=== PATIENT | male | born 1935 | race Two or more races ===

== ENCOUNTER 2022-06-26 19:27 | Inpatient (IN) | payer MEDICARE ==
[~2022-06-26] VITALS: Ht 172.7 cm; Wt 74.4 kg
[2022-06-26] MEDS: CEFTRIAXONE 1 G in IV D5W 50 ML IV SCH (00:56)
[2022-06-26] MEDS: AZITHROMYCIN 500 MG in IV D5W 250 ML IV SCH (01:48)
--- NOTE | 2022-06-26 19:15 | NUR ---
MS RN OPENING NOTE PATIENT IS SITTING IN BED WITH HER OWN CLOTHES. SHE IS CONFUSED AND TALKED TO HERSELF CONSTANTLY. SHE IS ORIENTED TO HER NAME ONLY. IV ACCESS WAS ON HER LEFT AC, #20 G. HER IV ACCESS IS PATENT AND INTACT, RUNNING NS AT 75 ML/HR. ORIENTED THE PATIENT TO THE SURROUNDINGS. PATIENT IS ON 2 LPM OF OXYGEN VIA NC, HOWEVER, SHE REFUSED TO PUT THE OXYGEN NEAR HER NOSTRILS. EDUCATED THE PATIENT AND NOTIFIED THE PATIENT THAT WE NEED TO COLLECT HER URINE SAMPLE, PT REFUSED. SAFETY MEASURES ARE IN PLACE: BED IN LOWEST AND LOCKED POSITION; SIDE RAILS UP X 3; BED ALARM IS IN SET; CALL CHAVARRIA AND TABLE ARE WITHIN REACH. WILL CONTINUE MONITOR THE PATIENT AND PROVIDE THE CARE PATIENT NEEDS.
[2022-06-26 20:24] LABS: BASOPHILS % (AUTO) 0.3 % (0.0-2.0); EOSINOPHILS % (AUTO) 0.4 % (0.0-6.0); HEMATOCRIT 38 % (39-51); HEMOGLOBIN 12.4 g/dL (13.5-17.5); LYMPHOCYTES # (AUTO) 0.3 K/uL (0.8-4.8); LYMPHOCYTES % (AUTO) 4.3 % (20.0-44.0); MEAN CORPUSCULAR HGB CONC 33 g/dl (31.0-36.0); MEAN CORPUSCULAR VOLUME 90 fL (80-96); MONOCYTES # (AUTO) 0.6 K/uL (0.1-1.30); MONOCYTES % (AUTO) 8.8 % (2.0-12.0); NEUTROPHILS # (AUTO) 6.2 K/uL (1.8-8.9); NEUTROPHILS % (AUTO) 86.2 % (43.0-81.0); PLATELET COUNT (AUTO) 155 K/uL (150-450); WHITE BLOOD COUNT (AUTO) 7.2 K/uL (4.3-11.0)
[2022-06-26 20:50] LABS: SERUM AMMONIA 4 umol/L (11-32)
[2022-06-26 20:57] LABS: ALANINE AMINOTRANSFERASE 10 U/L (12-78); ALBUMIN 3.5 g/dL (3.4-5.0); ALCOHOL, BLOOD < 3 mg/dL (0-0); ALKALINE PHOSPHATASE 65 U/L (46-116); ASPARTATE AMINOTRANSFERASE 17 U/L (15-37); BILIRUBIN,DIRECT 0.2 mg/dL (0.0-0.2); BILIRUBIN,TOTAL 0.5 mg/dL (0.2-1.0); CALCIUM, SERUM 8.9 mg/dL (8.5-10.1); CARBON DIOXIDE 26 mmol/L (21-32); CHLORIDE 105 mmol/L (98-107); CREATININE 1.6 mg/dL (0.6-1.3); GLUCOSE 103 mg/dL (74-106); POTASSIUM 3.4 mmol/L (3.5-5.1); SODIUM SERUM 140 mmol/L (136-145); TOTAL PROTEIN, SERUM 7.1 g/dL (6.4-8.2); UREA NITROGEN, BLOOD 36 mg/dL (7-18)
[2022-06-26 21:01] LABS: THYROID STIMULATING HORMONE 5.755 uIU/mL (0.358-3.74)
--- NOTE | 2022-06-26 21:27 | NUR ---
[facility] CALLED FOR TRANSFER REQUEST. NO BEDS AVAILABLE.
[2022-06-26] MEDS ORDERED: IV NS 0.9% 1,000 ML BAG IV ONE (21:30)
--- NOTE | 2022-06-26 21:45 | NUR ---
XRAY AT BEDSIDE
--- NOTE | 2022-06-26 21:45 | NUR ---
COVID SWAB DONE AND SENT TO LAB
[2022-06-26] MEDS ORDERED: ONDANSETRON HCL/PF 4 MG/2 ML VIAL IVP PRN (22:30)
[2022-06-26] MEDS ORDERED: TEMAZEPAM 15 MG CAPSULE PO PRN (22:30)
[2022-06-26] MEDS ORDERED: ACETAMINOPHEN 325 MG TABLET PO PRN (22:30)
[2022-06-26] MEDS ORDERED: Z GUARD REMEDY 4 OZ OINT TP PRN (22:30)
[2022-06-26] MEDS ORDERED: MORPHINE SULFATE INJ 2 MG/ML DISP.SYRIN IV PRN (22:30)
[2022-06-26] MEDS ORDERED: HYDROCODONE/APAP 5/325MG TABLET PO PRN (22:30)
[2022-06-26] MEDS ORDERED: MAG HYDROX/AL HYDROX/SIMETH 30 ML UDC PO PRN (22:30)
[2022-06-26] MEDS ORDERED: MAGNESIUM HYDROXIDE 30 ML UDC PO PRN (22:30)
[2022-06-26 22:43] LABS: BILIRUBIN,URINE NEGATIVE (NEGATIVE); COLOR,URINE YELLOW (YELLOW); LEUKOCYTE ESTERASE ,URINE NEGATIVE (NEGATIVE); NITRITE, URINE NEGATIVE (NEGATIVE); PH,URINE 5.5 (5.0-8.0); PROTEIN,URINE NEGATIVE (NEGATIVE); UGLUCOSE NEGATIVE (NEGATIVE); UROBILINOGEN,URINE 0.2 EU/dL (0.2)
[2022-06-26 22:51] LABS: RBC,URINE 0-2 /HPF (0-2)
[2022-06-26 22:52] LABS: BACTERIA,URINE Rare /HPF (None Seen); SQUAMOUS EPITHELIAL CELL,UR Moderate /HPF (None Seen)
--- NOTE | 2022-06-26 23:46 | NUR ---
RN MAY NOT READY FOR REPORT
--- NOTE | 2022-06-26 23:59 | NUR ---
REPORT GIVEN TO DELANEY MONSIVAIS
--- NOTE | 2022-06-27 00:30 | NUR ---
MS RN ADMITTING NOTE RECEIVED PATIENT REPORT BEING TRANSPORTED ON THE GURNEY TO THE UNIT. PATIENT IS ALERT AND AO X 2. REPORT WAS GIVEN BY DELANEY DOMÍNGUEZ. PATIENT HAS IV ACCESS AT HIS RIGHT AC, #20G, SL. FLUSHED WITH 10 CC NS, PATENT AND INTACT. PATIENT IS ON RA, NO S/S OF SOB OR DISTRESS. TOLERATED WELL. VITAL SIGNS WERE TAKEN BY THE SALES AMBASSADOR, AND DOCUMENTED IN THE COMPUTER. PLEASE SEE SALES AMBASSADOR NOTES. ORIENTED THE PATIENT WITH THE SURROUNDINGS AND HOW TO USE THE CALL LIGHT. PT VERBALIZED UNDERSTANDING. SAFETY PRECAUTIONS ARE IN PLACE: BED IN LOWEST AND LOCKED POSITION; SIDE RAILS UP X 3; PATIENT IS IN HIGH RISK OF FALL, BED ALARM IS IN PLACED. CALL CHAVARRIA AND TABLE ARE WITHIN REACH. WILL CONTINUE MONITOR THE PATIENT'S CONDITION AND PROVIDE THE CARE PATIENT NEEDS.
[2022-06-27] MEDS ORDERED: CEFTRIAXONE 1 G VIAL ONE (00:56)
--- NOTE | 2022-06-27 01:05 | NUR ---
PATIENT TRANSFERRED TO [facility]
--- NOTE | 2022-06-27 01:33 | NUR ---
MS RN NOTE ROCEPHIN IV MEDICATION GIVEN AT 0056 PER MD ORDER. THE DUPLICATED ONE WHICH IS OVERRIDE, NOT GIVEN. CHARGE NURSE, IMER, NOTIFIED.
[2022-06-27] MEDS ORDERED: AZITHROMYCIN 500 MG VIAL ONE (01:37)
[2022-06-27 05:30] LABS: BASOPHILS % (AUTO) 0.6 % (0.0-2.0); EOSINOPHILS % (AUTO) 0.6 % (0.0-6.0); HEMATOCRIT 36 % (39-51); HEMOGLOBIN 11.8 g/dL (13.5-17.5); LYMPHOCYTES # (AUTO) 0.9 K/uL (0.8-4.8); LYMPHOCYTES % (AUTO) 15.1 % (20.0-44.0); MEAN CORPUSCULAR HGB CONC 33 g/dl (31.0-36.0); MEAN CORPUSCULAR VOLUME 92 fL (80-96); MONOCYTES # (AUTO) 0.9 K/uL (0.1-1.30); MONOCYTES % (AUTO) 15.6 % (2.0-12.0); NEUTROPHILS # (AUTO) 4.1 K/uL (1.8-8.9); NEUTROPHILS % (AUTO) 68.1 % (43.0-81.0); PLATELET COUNT (AUTO) 164 K/uL (150-450); RED BLOOD CELL COUNT(AUTO) 3.95 MIL/uL (4.5-6.0); WHITE BLOOD COUNT (AUTO) 6.1 K/uL (4.3-11.0)
[2022-06-27 05:46] LABS: CALCIUM, SERUM 8.4 mg/dL (8.5-10.1); CREATININE 1.3 mg/dL (0.6-1.3); MAGNESIUM 1.8 mg/dL (1.8-2.4); PHOSPHORUS 2.4 mg/dL (2.5-4.9); POTASSIUM 3.6 mmol/L (3.5-5.1)
--- NOTE | 2022-06-27 05:55 | NUR ---
MS RN NOTE PATIENT IS VERY CONFUSED AND PULLED HIS IV ACCESS OUT. ASSESSED THE PATIENT AND APPLIED BANDAGE ON THE IV SITE. TRIED TO REINSERTED THE IV, PATIENT SCREAMED AND REFUSED. CHARGE NURSE, IMER, NOTIFIED.
--- NOTE | 2022-06-27 07:40 | NUR ---
MS RN CLOSING NOTE PATIENT IS IN BED SLEEPING. EASILY BEING AROUSED. HE IS ON RA, NO S/S SOB OR DISTRESS. PATIENT IS STILL CONFUSED AND TRYING TO GET OFF THE BED. CHANGE SHIFT REPORT GIVEN TO THE DAY SHIFT NURSE, AND ENDORSED THE DAY SHIFT NURSE TO FOLLOW UP WITH THE REQUESTING PATIENT'S HOME MEDICATION WITH PATIENT'S FAMILY MEMBERS.
--- NOTE | 2022-06-27 07:44 | NUR ---
RECEIVED PATIENT AWAKE IN BED, A/O X2. ON RA, TOLERATING WELL. NO SIGNS OF RESPIRATORY DISTRESS NOTED. NO IV ACCESS NOTED PATIENT KEPT ON PULLING OUT IV LINE ENDORSED BY OUTGOING NURSE. NO COMPLAIN OF PAIN OR DISCOMFORT AT THIS TIME. KEPT COMFORTABLE. SAFETY MEASURES MAINTAINED WITH BED ON LOWEST, LOCKED POSITION, CALL LIGHT WITHIN REACH AT ALL TIMES. WILL MONITOR.
[2022-06-27 08:00] VITALS: BP 148/74
[2022-06-27] MEDS: PANTOPRAZOLE 40 MG TABLET.DR PO SCH (08:14)
[2022-06-27] MEDS ORDERED: RIVA1PAT11 TP (10:03)
[2022-06-27] MEDS ORDERED: DOCU250C14 PO (10:03)
[2022-06-27] MEDS ORDERED: ISRA2.5C PO (10:03)
[2022-06-27] MEDS ORDERED: ARMO250T6 PO (10:03)
[2022-06-27] MEDS ORDERED: MYRBETRIQ PO (10:03)
[2022-06-27] MEDS ORDERED: CARB1CAP3 PO (10:03)
[2022-06-27] MEDS ORDERED: DONE5TAB34 PO (10:03)
[2022-06-27] MEDS ORDERED: CHOL100043 PO (10:03)
[2022-06-27] MEDS ORDERED: ATOR10TA PO (10:03)
[2022-06-27] MEDS ORDERED: ASPI-1420 PO (10:03)
[2022-06-27] MEDS ORDERED: LOSA100T31 PO (10:03)
[2022-06-27] MEDS ORDERED: NEUTRA PHOS 1 POWD.PACKET PO ONE (12:00)
[2022-06-27] MEDS: IV NS 0.9% 1,000 ML IV PRN (13:44)
[2022-06-27 16:00] VITALS: BP 158/82
--- NOTE | 2022-06-27 18:18 | NUR ---
RN CLOSING NOTE PATIENT AWAKE IN BED, A/O X2. ON RA, TOLERATING WELL. NO SIGNS OF RESPIRATORY DISTRESS NOTED. WITH ONGOING IV AT 75ML/HR KEPT COMFORTABLE. ALL DUE MEDS GIVEN.SAFETY MEASURES MAINTAINED WITH BED ON LOWEST, LOCKED POSITION, CALL LIGHT WITHIN REACH AT ALL TIMES. ENDORSED TO INCOMING NOD.
--- NOTE | 2022-06-27 19:25 | NUR ---
MS RN OPENING NOTE RECEIVED PATIENT IN BED. PATIENT PULLED OUT IS IV ACCESS AT HIS RIGHT FA . APPLIED BANDAGE, AND CLEANED THE SITE. PATIENT IS ON RA, NO S/S OF SOB OR DISTRESS. TOLERATED WELL. PATIENT C/O OF HAVING MILD HEADACHE. SAFETY PRECAUTIONS ARE IN PLACE: BED IN LOWEST AND LOCKED POSITION; SIDE RAILS UP X 3; PATIENT IS IN HIGH RISK OF FALL, BED ALARM IS IN PLACED. CALL CHAVARRIA AND TABLE ARE WITHIN REACH. WILL CONTINUE MONITOR THE PATIENT'S CONDITION AND PROVIDE THE CARE PATIENT NEEDS.
[2022-06-27 20:00] VITALS: BP 129/57
[2022-06-27] MEDS: CEFTRIAXONE 1 G in IV D5W 50 ML IV SCH (20:12)
--- NOTE | 2022-06-27 20:28 | NUR ---
MS RN NOTE INSERTED ONE IV ACCESS FOR THE PATIENT ON HIS RIGHT HAND; #22G. PATIENT IS CONFUSED. TYLENOL 650 MG GIVEN VIA PO FOR HIS MILD HEADACHE. TO AVOID FURTHER INTERRUPTING THE TREATMENT AND PULLING OUT THE IV, SOFT WRISTS RESTRAIN BILATERAL ORDERED RECEIVED AND APPLIED TO THE PATIENT. WATER AND BATHROOM VOIDING OFFERED TO THE PATIENT.
[2022-06-27] MEDS: AZITHROMYCIN 500 MG in IV D5W 250 ML IV SCH (21:04)
--- NOTE | 2022-06-28 07:09 | NUR ---
MS RN CLOSING NOTE PATIENT IS IN BED SLEEPING. THROUGH THE NIGHT, PATIENT HAS BEEN CONFUSED. NEW IV ACCESS IS AT HIS RIGHT HAND, #22G, RUNNING NS AT 75 ML/HR. PATIENT IS ON RA, NO S/S OF SOB OR DISTRESS. TOLERATED WELL. SAFETY PRECAUTIONS ARE IN PLACE: BED IN LOWEST AND LOCKED POSITION; SIDE RAILS UP X 3; BED ALARM IS IN PLACED. CALL CHAVARRIA AND TABLE ARE WITHIN REACH. WILL ENDORSE NEXT SHIFT NURSE FOR CONTINUING PATIENT CARE.
--- NOTE | 2022-06-28 07:58 | NUR ---
RN OPENING NOTE PATIENT AWAKE IN BED RESTING AT THE MOMENT A/O X 2. NO S/S OF PAIN NOTED AT THIS TIME. ON ROOM AIR, NO DISTRESS OR SHORTNESS OF BREATH NOTED. IV ACCESS R HAND #22G, INTACT, PATENT AND FLUSHING WELL. FALL AND SAFETY MEASURES IN PLACE, BED ALARM ON, BED IN LOW AND LOCK POSITION, CALL LIGHT AND TABLE WITHIN EASY REACH, SIDE RAILS UP X2. WILL CONTINUE TO MONITOR.
[2022-06-28 08:00] VITALS: BP 141/72
[2022-06-28 08:01] LABS: BASOPHILS % (AUTO) 0.5 % (0.0-2.0); EOSINOPHILS % (AUTO) 1.8 % (0.0-6.0); HEMATOCRIT 35 % (39-51); HEMOGLOBIN 11.7 g/dL (13.5-17.5); MEAN CORPUSCULAR HGB CONC 34 g/dl (31.0-36.0); MEAN CORPUSCULAR VOLUME 89 fL (80-96); MONOCYTES # (AUTO) 0.8 K/uL (0.1-1.30); MONOCYTES % (AUTO) 20.6 % (2.0-12.0); NEUTROPHILS # (AUTO) 1.9 K/uL (1.8-8.9); NEUTROPHILS % (AUTO) 50.1 % (43.0-81.0); PLATELET COUNT (AUTO) 142 K/uL (150-450); RED BLOOD CELL COUNT(AUTO) 3.92 MIL/uL (4.5-6.0); WHITE BLOOD COUNT (AUTO) 3.7 K/uL (4.3-11.0)
[2022-06-28] MEDS: PANTOPRAZOLE 40 MG TABLET.DR PO SCH (08:28)
[2022-06-28 08:35] LABS: CALCIUM, SERUM 8.4 mg/dL (8.5-10.1); CARBON DIOXIDE 27 mmol/L (21-32); CHLORIDE 109 mmol/L (98-107); CREATININE 1.1 mg/dL (0.6-1.3); GLUCOSE 79 mg/dL (74-106); MAGNESIUM 1.8 mg/dL (1.8-2.4); PHOSPHORUS 2.9 mg/dL (2.5-4.9); POTASSIUM 3.5 mmol/L (3.5-5.1); SODIUM SERUM 145 mmol/L (136-145); UREA NITROGEN, BLOOD 23 mg/dL (7-18)
[2022-06-28 16:00] VITALS: BP 141/68
[2022-06-28 16:56] LABS: LYMPHOCYTES % (MANUAL) 30 % (16-48); MONOCYTES % (MANUAL) 20 % (0-11.0); NEUTROPHILS % (MANUAL) 50 (42-76)
--- NOTE | 2022-06-28 18:51 | NUR ---
RN CLOSING NOTE PATIENT AWAKE IN BED RESTING AT THE MOMENT A/O X 2. NO S/S OF PAIN NOTED AT THIS TIME. ON ROOM AIR, NO DISTRESS OR SHORTNESS OF BREATH NOTED. IV ACCESS R HAND #22G, INTACT, PATENT AND FLUSHING WELL. SCHEDULE MEDICATIONS ADMINISTERED. PATIENT WAS TURNED AND REPOSITIONED PER PROTOCOL. FALL AND SAFETY MEASURES IN PLACE, BED ALARM ON, BED IN LOW AND LOCK POSITION, CALL LIGHT AND TABLE WITHIN EASY REACH, SIDE RAILS UP X2. WILL ENDORSE TO INFORMATION RESOURCES MANAGER.
[2022-06-28 20:00] VITALS: BP 115/76
[2022-06-28] MEDS: AZITHROMYCIN 500 MG in IV D5W 250 ML IV SCH (20:01)
--- NOTE | 2022-06-28 20:12 | NUR ---
RN OPENING NOTE PATIENT AWAKE IN BED RESTING AT THE MOMENT A/O X 2. NO S/S OF PAIN NOTED AT THIS TIME. ON ROOM AIR, NO DISTRESS OR SHORTNESS OF BREATH NOTED. IV ACCESS R HAND #22G, INTACT, PATENT AND FLUSHING WELL. SCHEDULE MEDICATIONS ADMINISTERED. PATIENT WAS TURNED AND REPOSITIONED PER PROTOCOL. KEPT COMFORTABLE. FALL AND SAFETY MEASURES IN PLACE, BED ALARM ON, BED IN LOW AND LOCK POSITION, CALL LIGHT AND TABLE WITHIN EASY REACH, SIDE RAILS UP X2. WILL CONTINUE TO MONITOR
[2022-06-28] MEDS: CEFTRIAXONE 1 G in IV D5W 50 ML IV SCH (21:05)
--- NOTE | 2022-06-29 06:32 | NUR ---
RN CLOSING NOTE PATIENT AWAKE IN BED RESTING AT THE MOMENT A/O X 2. NO S/S OF PAIN NOTED AT THIS TIME. ON ROOM AIR, NO DISTRESS OR SHORTNESS OF BREATH NOTED. IV ACCESS R HAND #22G, INTACT, PATENT AND FLUSHING WELL. SCHEDULE MEDICATIONS ADMINISTERED. PATIENT WAS TURNED AND REPOSITIONED PER PROTOCOL. ON SOFT RESTRAINT AT BOTH WRIST.. RELEASED EVERY 2 HOURS; CIRCULATION CHECKED. RESTRAINTS RENEWED. KEPT COMFORTABLE. FALL AND SAFETY MEASURES IN PLACE, BED ALARM ON, BED IN LOW AND LOCK POSITION, CALL LIGHT AND TABLE WITHIN EASY REACH, SIDE RAILS UP X2. WILL ENDORSE TO NEXT SHIFT RN FOR CLAUDIO.
--- NOTE | 2022-06-29 07:30 | NUR ---
MS RN OPENING NOTES RECEIVED PATIENT ON BED AWAKE AND A/O X2, CONFUSED. ON ROOM AIR TOLERATING WELL. NO SOB NOTED. NOT IN DISTRESS. ON BILATERAL SOFT WRIST RESTRAINTS DUE TO PULLING OUT OF IV LINES. WITH NO COMPLAINTS OF PAIN OR DISCOMFORT AT THIS TIME. WITH IV ACCESS AT THE LEFT HAND G22 WITH IVF NS AT 75ML/HR INFUSING WELL. SAFETY MEASURES IN PLACED. CALL LIGHT WITHIN REACH. BED ON LOWEST LOCKED POSITION, SIDE RAILS UP X2. WILL CONTINUE TO MONITOR.
[2022-06-29 07:36] LABS: CALCIUM, SERUM 8.7 mg/dL (8.5-10.1); MAGNESIUM 1.7 mg/dL (1.8-2.4); PHOSPHORUS 2.8 mg/dL (2.5-4.9)
[2022-06-29 07:43] LABS: BASOPHILS # (AUTO) 0.1 K/uL (0.0-0.2); EOSINOPHILS % (AUTO) 1.2 % (0.0-6.0); HEMATOCRIT 37 % (39-51); HEMOGLOBIN 12.4 g/dL (13.5-17.5); LYMPHOCYTES % (AUTO) 19.6 % (20.0-44.0); MEAN CORPUSCULAR HGB CONC 33 g/dl (31.0-36.0); MEAN CORPUSCULAR VOLUME 89 fL (80-96); MONOCYTES # (AUTO) 0.6 K/uL (0.1-1.30); MONOCYTES % (AUTO) 11.9 % (2.0-12.0); NEUTROPHILS # (AUTO) 3.5 K/uL (1.8-8.9); NEUTROPHILS % (AUTO) 66.3 % (43.0-81.0); PLATELET COUNT (AUTO) 148 K/uL (150-450); WHITE BLOOD COUNT (AUTO) 5.2 K/uL (4.3-11.0)
[2022-06-29 08:00] VITALS: BP 154/80
[2022-06-29] MEDS: PANTOPRAZOLE 40 MG TABLET.DR PO SCH (08:24)
[2022-06-29] MEDS: AZITHROMYCIN 250 MG TABLET PO SCH (08:24)
[2022-06-29] MEDS ORDERED: POTASSIUM CHLORIDE 20 MEQ TAB.PRT.SR PO SCH (10:00)
[2022-06-29] MEDS ORDERED: MAGNESIUM OXIDE 400 MG TABLET PO ONE (10:00)
[2022-06-29] MEDS ORDERED: ISTR40TA (12:30)
[2022-06-29] MEDS ORDERED: AZIT250T PO (12:40)
[2022-06-29] MEDS ORDERED: LEVODOPA PO SCH (13:00)
[2022-06-29] MEDS ORDERED: [UNRECOGNIZED DRUG - OTHER] PO SCH (13:00)
[2022-06-29] MEDS ORDERED: CARBIDOPA PO SCH (13:00)
[2022-06-29] MEDS: AMLODIPINE BESYLATE 2.5 MG TABLET PO SCH (13:11)
[2022-06-29 16:00] VITALS: BP 158/89
--- NOTE | 2022-06-29 19:30 | NUR ---
MS RN CLOSING NOTES PATIENT ON BED AWAKE AND A/O X2, CONFUSED. ON ROOM AIR TOLERATING WELL. NO SOB NOTED. NOT IN DISTRESS. ON BILATERAL SOFT WRIST RESTRAINTS DUE TO PULLING OUT OF IV LINES. WITH NO COMPLAINTS OF PAIN OR DISCOMFORT AT THIS TIME. WITH IV ACCESS AT THE LEFT HAND G22 WITH IVF NS AT 75ML/HR INFUSING WELL. DUE MEDS GIVEN. SAFETY MEASURES IN PLACED. CALL LIGHT WITHIN REACH. BED ON LOWEST LOCKED POSITION, SIDE RAILS UP X2. WILL ENDORSE TO NEXT SHIFT FOR CLAUDIO.
--- NOTE | 2022-06-29 19:35 | NUR ---
MS RN OPENING NOTE RECEIVED PATIENT IN BED; AWAKE, ALERT AND ORIENTED X 2; WITH PERIODS OF CONFUSION. ON ROOM AIR; TOLERATING WELL. NOT IN ANY FORM OF RESPIRATORY OR CARDIAC DISTRESS. NO C/O PAIN OR DISCOMFORT MADE AT THIS TIME. WITH BILATERAL SOFT WRIST RESTRAINTS IN PLACE; SKIN AND CIRCULATION WNL. WITH IV ACCESS ON RIGHT HAND 22G; PATENT AND INTACT INFUSING WITH IVF NS RUNNING @ 75ML/HR; FLUSHES WELL. SAFETY MEASURES IMPLEMENTED: CALL LIGHT AND TABLE WITHIN REACH; SIDE RAILS UP X 3, BED IN LOWEST LOCKED POSITION. WILL CONTINUE TO MONITOR.
[2022-06-29 20:00] VITALS: BP 156/78
[2022-06-29] MEDS: IV NS 0.9% 1,000 ML IV PRN (20:29)
[2022-06-29] MEDS: CEFTRIAXONE 1 G in IV D5W 50 ML IV SCH (20:30)
[2022-06-30 06:34] LABS: BASOPHILS % (AUTO) 0.5 % (0.0-2.0); EOSINOPHILS % (AUTO) 2.3 % (0.0-6.0); HEMATOCRIT 36 % (39-51); HEMOGLOBIN 12.5 g/dL (13.5-17.5); LYMPHOCYTES # (AUTO) 1.6 K/uL (0.8-4.8); LYMPHOCYTES % (AUTO) 23.9 % (20.0-44.0); MEAN CORPUSCULAR HGB CONC 34 g/dl (31.0-36.0); MEAN CORPUSCULAR VOLUME 92 fL (80-96); MONOCYTES # (AUTO) 0.9 K/uL (0.1-1.30); MONOCYTES % (AUTO) 13.2 % (2.0-12.0); NEUTROPHILS % (AUTO) 60.1 % (43.0-81.0); PLATELET COUNT (AUTO) 123 K/uL (150-450); RED BLOOD CELL COUNT(AUTO) 3.95 MIL/uL (4.5-6.0); WHITE BLOOD COUNT (AUTO) 6.6 K/uL (4.3-11.0)
--- NOTE | 2022-06-30 06:40 | NUR ---
EROSION CONTROL SPECIALIST CLOSING NOTE PATIENT IN BED; AWAKE, A/O X 4. BREATHING EQUAL AND UNLABORED. STILL ON O2 INHALATION @ 3 LPM VIA NASAL CANNULA; WELL TOLERATED. IN NO ACUTE DISTRESS. NO C/O ANY PAIN OR DISCOMFORT MADE AT THIS TIME. 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 WITH IV ACCESS ON LEFT UPPER ARM 22G; PATENT, INTACT AND SALINE LOCKED. 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 ALL NEEDS ATTENDED TO. SAFETY MEASURES MAINTAINED: HEAD OF BED ELEVATED, CALL LIGHT AND TABLE WITHIN EASY REACH, SIDE RAILS UP X 2, BED IN LOWEST LOCKED POSITION. ENDORSED TO MORNING SHIFT FOR CLAUDIO. Addendum: 06/30/22 at 0654 by TYLER CEDENO RN THIS IS A WRONG ENTRY.
--- NOTE | 2022-06-30 06:50 | NUR ---
MS RN CLOSING NOTE PATIENT IN BED; AWAKE, A/O X 2; WITH PERIODS OF CONFUSION. STABLE ON ROOM AIR. IN NO ACUTE DISTRESS. NO S/S OF PAIN OR DISCOMFORT NOTED AT THIS TIME. STILL ON WITH BILATERAL SOFT WRIST RESTRAINTS; SKIN AND CIRCULATION WNL. WITH IV ACCESS ON RIGHT HAND 22G; PATENT AND INTACT RUNNING WITH IV FLUIDS NS REGULATED @ 75ML/HR; FLUSHES WELL. SAFETY MEASURES MAINTAINED: CALL LIGHT AND TABLE WITHIN REACH; SIDE RAILS UP X 3, BED IN LOWEST LOCKED POSITION. ENDORSED TO MORNING SHIFT FOR CLAUDIO.
[2022-06-30 07:27] LABS: CALCIUM, SERUM 8.7 mg/dL (8.5-10.1); CARBON DIOXIDE 28 mmol/L (21-32); CHLORIDE 108 mmol/L (98-107); GLUCOSE 87 mg/dL (74-106); MAGNESIUM 1.9 mg/dL (1.8-2.4); PHOSPHORUS 2.7 mg/dL (2.5-4.9); POTASSIUM 3.8 mmol/L (3.5-5.1); SODIUM SERUM 143 mmol/L (136-145); UREA NITROGEN, BLOOD 24 mg/dL (7-18)
--- NOTE | 2022-06-30 07:30 | NUR ---
MS RN OPENING NOTES RECEIVED PATIENT ON BED RESTING AND A/O X2, CONFUSED. ON ROOM AIR TOLERATING WELL. NO SOB NOTED. NOT IN DISTRESS. ON BILATERAL SOFT WRIST RESTRAINTS DUE TO PULLING OUT OF IV LINES. WITH NO COMPLAINTS OF PAIN OR DISCOMFORT AT THIS TIME. WITH IV ACCESS AT THE LEFT HAND G22 WITH IVF NS AT 75ML/HR INFUSING WELL. SAFETY MEASURES IN PLACED. CALL LIGHT WITHIN REACH. BED ON LOWEST LOCKED POSITION, SIDE RAILS UP X2. WILL CONTINUE TO MONITOR.
[2022-06-30] MEDS: AZITHROMYCIN 250 MG TABLET PO SCH (08:36)
[2022-06-30 08:37] VITALS: BP 154/79
[2022-06-30] MEDS: AMLODIPINE BESYLATE 2.5 MG TABLET PO SCH (08:37)
[2022-06-30] MEDS: PANTOPRAZOLE 40 MG TABLET.DR PO SCH (08:38)
[2022-06-30] MEDS ORDERED: DOCUSATE SODIUM 250 MG CAPSULE PO SCH (09:00)
[2022-06-30] MEDS ORDERED: DONEPEZIL 5 MG TABLET PO SCH (09:00)
[2022-06-30] MEDS ORDERED: LOSARTAN POTASSIUM 50 MG TABLET PO SCH (09:00)
[2022-06-30] MEDS ORDERED: ASPIRIN EC 81 MG TABLET.DR PO SCH (09:00)
[2022-06-30] MEDS ORDERED: ATORVASTATIN 10 MG TABLET PO SCH (09:00)
[2022-06-30] MEDS ORDERED: RIVASTIGMINE TARTRATE 4.6 MG PATCH.TD24 TD SCH (09:00)
[2022-06-30 16:36] VITALS: BP 158/79
--- NOTE | 2022-06-30 18:22 | NUR ---
MS RN CLOSING NOTES PATIENT ON BED RESTING AND A/O X2, CONFUSED. ON ROOM AIR TOLERATING WELL. NO SOB NOTED. NOT IN DISTRESS. ON BILATERAL SOFT WRIST RESTRAINTS DUE TO PULLING OUT OF IV LINES. WITH NO COMPLAINTS OF PAIN OR DISCOMFORT AT THIS TIME. WITH IV ACCESS AT THE LEFT HAND G22 WITH IVF NS AT 75ML/HR INFUSING WELL. DUE MEDS GIVEN. PATIENT IS FOR DISCHARGE TO [facility] AT 1930 AND GIVEN REPORT TO DELANEY HERNANDES. SAFETY MEASURES IN PLACED. CALL LIGHT WITHIN REACH. BED ON LOWEST LOCKED POSITION, SIDE RAILS UP X2. WILL ENDORSE TO NEXT SHIFT FOR CLAUDIO.
--- NOTE | 2022-06-30 19:30 | NUR ---
TOWER CRANE OPERATOR NOTES PATIENT WAS ORDERED BY DR. GILLETTE FOR DISCHARGE TO ACUTE REHAB. GIVEN REPORT TO DELANEY HERNANDES FROM [facility] TO ROOM 310. PATIENT UNABLE TO SIGN DISCHARGE FORMS BUT FAMILY IS AWARE OF THE DISCHARGE. REMOVED IV LINE. DISCHARGE PAPERS AND MEDICATION INSTRUCTION PROVIDED AND MEDS FROM PHARMACY GIVEN AND HANDED TO AMBULANCE PERSONNEL. PATIENT LEFT IN STABLE CONDITION VIA STRETCHER BY AMBULANCE PERSONNEL. MD AND CHARGE NURSE ARE AWARE OF THE DISCHARGE.
== END 2022-06-30 19:30 | DRG 682 ==
LOC: ER 19:28 → MED 23:28
PROVIDERS: ADMIT Nurse Practitioner Acute Care; ATTEND Nurse Practitioner Acute Care
DX: N17.0 Acute kidney failure with tubular necrosis (principal); J15.9 Unspecified bacterial pneumonia; G93.40 Encephalopathy, unspecified; D68.59 Other primary thrombophilia; E87.6 Hypokalemia; E83.39 Other disorders of phosphorus metabolism; G20 Parkinson's disease; I10 Essential (primary) hypertension; J40 Bronchitis, not specified as acute or chronic; Z86.73 Personal history of transient ischemic attack (TIA), and cerebral infarction without residual deficits; F01.50 Vascular dementia, unspecified severity, without behavioral disturbance, psychotic disturbance, mood disturbance, and anxiety
CPT/HCPCS: 36415; 70450-TC; 71045-TC; 76770-TC; 80048-TC; 80076-TC; 81001; 82140-TC; 82962-TC; 83735-TC; 84100-TC; 84439-TC; 84443-TC; 85025-TC; 87081-TC; 97110-TC; 97112-TC; 97116-TC; 97530-TC; 97535-TC; C9803; G0378; G0480; J0456; J0696; J7030; J7060